=== PATIENT | female | born 1990 | race Caucasian/White ===

== ENCOUNTER 2017-06-05 10:38 | Inpatient (IN) | payer OTHER ==
[2017-06-05 11:02] VITALS: BMI 30.2
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
[2017-06-05] MEDS ORDERED: MAGNESIUM HYDROX 2400MG/30ML ORAL SUSPENSION 30 ML CUP PO PRN (16:45)
[2017-06-05] MEDS ORDERED: MAGNESIUM CITRATE 300 ML BOTTLE PO PRN (16:45)
[2017-06-05] MEDS ORDERED: P-EPHED 60MG/TRIPROLIDI 2.5MG TABLET PO PRN (16:45)
[2017-06-05] MEDS ORDERED: MENTHOL/PHENOL 1 EACH UD MM PRN (16:45)
[2017-06-05] MEDS ORDERED: guaiFENesin/D-METHORPHAN HB 10 ML UNIT-DOSE CUPS PO PRN (16:45)
[2017-06-05] MEDS ORDERED: diazePAM 5 MG TABLET PO ONE (17:15)
[2017-06-05] MEDS ORDERED: METHADONE HCL 10 MG TABLET (FOR DETOX USE ONLY) PO ONE ×2 (17:15→23:00)
[2017-06-05] MEDS: IBUPROFEN 400 MG TABLET (FP) PO PRN (17:35)
[2017-06-05] MEDS: ACETAMINOPHEN 325 MG TABLET (FP) PO PRN (20:53)
[2017-06-05 22:09] LABS: URINE APPEARANCE CLOUDY; URINE BILIRUBIN NEGATIVE (NEGATIVE); URINE BLOOD NEGATIVE (NEGATIVE); URINE COLOR AMBER; URINE GLUCOSE (UA) NEGATIVE (NEGATIVE); URINE KETONE NEGATIVE (NEGATIVE); URINE NITRITE POSITIVE (NEGATIVE); URINE PROTEIN NEGATIVE (NEGATIVE); URINE UROBILINOGEN 4.0 E.U/dl mg/dL (0.2-1.0)
[2017-06-05 22:15] LABS: URINE LEUK ESTERASE 1+ (NEGATIVE)
[2017-06-05 22:17] LABS: EPI CELLS RARE /HPF (FEW); URINE HYALINE CAST 1 /lpf; URINE MUCUS MANY
[2017-06-05] MEDS: THIAMINE HCL 100 MG TABLET (FP) PO SCH (22:45)
[2017-06-05] MEDS: diazePAM 5 MG TABLET PO PRN (22:46)
[2017-06-05] MEDS: diazePAM 5 MG TABLET PO SCH (22:46)
[2017-06-06] MEDS: diazePAM 5 MG TABLET PO SCH ×3 (06:05→22:24)
[2017-06-06] MEDS ORDERED: METHADONE HCL 10 MG TABLET (FOR DETOX USE ONLY) PO SCH (10:00)
[2017-06-06 10:08] LABS: HEMATOCRIT 38.9 % (32.4-45.2); HEMOGLOBIN 12.8 GM/dL (10.7-15.3); MCH 30.5 pg (25.7-33.7); MCHC 32.9 g/dl (32.0-36.0); MEAN CELL VOLUME 92.6 fl (80-96); MEAN PLT VOLUME 10.4 fl (7.5-11.1); PLATELET COUNT 143 K/MM3 (134-434); RDW 12.8 % (11.6-15.6); WHITE BLOOD COUNT 8.2 K/mm3 (4.0-10.0)
[2017-06-06 10:12] LABS: CHLORIDE 106 mmol/L (98-107); SODIUM 141 mmol/L (136-145)
[2017-06-06 10:23] LABS: ALBUMIN 3.2 g/dl (3.4-5.0); ALK PHOS 61 U/L (45-117); ANION GAP 8 (8-16); BILIRUBIN,TOTAL 0.3 mg/dL (0.2-1.0); BLOOD UREA NITROGEN 9 mg/dL (7-18); CO2 27 mmol/L (21-32); CREATININE 0.8 mg/dL (0.55-1.02); GLUCOSE,RANDOM 112 mg/dL (74-106); SGOT/AST 12 U/L (15-37); SGPT/ALT 19 U/L (12-78)
[2017-06-06] MEDS: PRENATAL VITAMINS W/ FOLIC ACID TABLET (FP) PO SCH (10:49)
[2017-06-06] MEDS: NICOTINE 14 MG/24 HOURS TOPICAL PATCH TD SCH (10:50)
[2017-06-06] MEDS: diazePAM 5 MG TABLET PO PRN ×2 (10:53→17:12)
--- NOTE | 2017-06-06 10:56 | EKG ---
Test Reason : Blood Pressure : / mmHG Vent. Rate : 084 BPM Atrial Rate : 084 BPM P-R Int : 124 ms QRS Dur : 074 ms QT Int : 352 ms P-R-T Axes : 022 067 054 degrees QTc Int : 415 ms NORMAL SINUS RHYTHM NORMAL ECG NO PREVIOUS ECGS AVAILABLE Confirmed by MD Cheikh, Matti ([id number]) on 06/06/2017 10:56:09 AM Referred By: Darvin Coyle Confirmed By:Matti Salamanca MD
[2017-06-06] MEDS: MAG HYDROX/AL HYDROX/SIMETH 30 ML UNIT-DOSE CUP PO PRN ×2 (11:11→17:33)
[2017-06-06] MEDS: ACETAMINOPHEN 325 MG TABLET (FP) PO PRN (11:11)
--- NOTE | 2017-06-06 12:04 | PN ---
[facility] CIWA - CIWA Score Nausea/Vomitin-No Nausea/No Vomiting Muscle Tremors: 4-Moderate,w/Arms Extend Anxiety: 4-Mod. Anxious/Guarded Agitation: 4-Moderately Restless Paroxysmal Sweats: 3 Orientation: 0-Oriented Tacttile Disturbances: 0-None Auditory Disturbances: 0-None Visual Disturbances: 0-None Headache: 0-None Present CIWA-Ar Total Score: 15 [facility] COWS - Scale Resting Pulse: 1= [place] 81-100 Sweatin=Flushed/Facial Moisture Restless Observation: 1= Difficult to Sit Still Pupil Size: 0= Normal to Room Light Bone or Joint Aches: 2= Severe Diffuse Aches Runny Nose/ Eye Tearin= Runny Nose/Eyes GI Upset > 30mins: 2= Nausea/Diarrhea Tremor Observation of Outstretched Hands: 2= Slight Tremor Visible Yawning Observation: 2= >3x During Session Anxiety or Irritability: 2=Irritable/Anxious Goose Flesh Skin: 0=Smooth Skin COWS Score: 16 S Progress Note (SOAP) Subjective: agitation sweats diarrhea anxiety chills body aches Objective: 06/06/17 12:03 Vital Signs Temperature 97.9 F 06/06/17 10:41 Pulse Rate 83 06/06/17 10:41 Respiratory Rate 18 06/06/17 10:41 Blood Pressure 117/77 06/06/17 10:41 O2 Sat by Pulse Oximetry (%) Laboratory Tests 06/05/17 06/06/17 06/06/17 21:44 07:00 07:00 WBC 8.2 RBC 4.20 Hgb 12.8 Hct 38.9 MCV 92.6 MCH 30.5 MCHC 32.9 RDW 12.8 Plt Count 143 MPV 10.4 Sodium 141 Potassium 4.0 Chloride 106 Carbon Dioxide 27 Anion Gap 8 BUN 9 Creatinine 0.8 Creat Clearance w eGFR > 60 Random Glucose 112 H Calcium 8.0 L Total Bilirubin 0.3 D AST 12 L D ALT 19 D Alkaline Phosphatase 61 Total Protein 6.0 L Albumin 3.2 L Urine Color [place] Urine Appearance Cloudy Urine pH 6.0 Ur Specific [place] 1.027 Urine Protein Negative Urine Glucose (UA) Negative Urine Ketones Negative Urine Blood Negative Urine Nitrite Positive Urine Bilirubin Negative Urine Urobilinogen 4.0 e.u/dl H Ur Leukocyte Esterase 1+ H D Urine WBC (Auto) 21 Urine RBC (Auto) 5 Ur Epithelial Cells Rare Hyaline Casts 1 Urine Mucus Many repeat u/a aaox3 ambulating no acute distress Assessment: 06/06/17 12:04 withdrawal sx Plan: continue detox increase fluids labs pending
[2017-06-06] MEDS: IBUPROFEN 400 MG TABLET (FP) PO PRN (14:33)
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
[2017-06-06] MEDS: hydrOXYzine PAMOATE 50 MG CAPSULE (FP) PO PRN (21:05)
[2017-06-06] MEDS: THIAMINE HCL 100 MG TABLET (FP) PO SCH (22:24)
[2017-06-06] MEDS: QUEtiapine FUMARATE 50 MG TABLET PO SCH (22:24)
[2017-06-07] MEDS: diazePAM 5 MG TABLET PO SCH ×2 (10:49→22:37)
[2017-06-07] MEDS: METHADONE HCL 5 MG TABLET (FOR DETOX USE ONLY) PO SCH (10:49)
[2017-06-07] MEDS: PRENATAL VITAMINS W/ FOLIC ACID TABLET (FP) PO SCH (10:50)
[2017-06-07] MEDS: LOPERAMIDE HCL 2 MG CAPSULE PO PRN ×2 (10:53→20:29)
[2017-06-07] MEDS: NICOTINE 14 MG/24 HOURS TOPICAL PATCH TD SCH (10:54)
[2017-06-07] MEDS: ACETAMINOPHEN 325 MG TABLET (FP) PO PRN ×2 (11:30→20:30)
[2017-06-07] MEDS: NICOTINE POLACRILEX 2 MG GUM BC PRN (11:44)
--- NOTE | 2017-06-07 12:11 | PN ---
[facility] CIWA - CIWA Score Nausea/Vomitin Muscle Tremors: 3 Anxiety: 3 Agitation: 1-Slight > Activity Paroxysmal Sweats: 3 Orientation: 0-Oriented Tacttile Disturbances: 2-Mild Itch/Numbness/Burn Auditory Disturbances: 0-None Visual Disturbances: 1-Very Mild Sensitivity Headache: 0-None Present CIWA-Ar Total Score: 16 [facility] COWS - Scale Resting Pulse: 0= [place] 80 or Below Sweatin= Chills/Flushing Restless Observation: 1= Difficult to Sit Still Pupil Size: 0= Normal to Room Light Bone or Joint Aches: 1= Mild Discomfort Runny Nose/ Eye Tearin= Runny Nose/Eyes GI Upset > 30mins: 2= Nausea/Diarrhea Tremor Observation of Outstretched Hands: 2= Slight Tremor Visible Yawning Observation: 2= >3x During Session Anxiety or Irritability: 2=Irritable/Anxious Goose Flesh Skin: 3=Piloerection COWS Score: 16 [facility] Progress Note (SOAP) Subjective: alert, interrupted sleep, anxious, body aches, sweat, chills Objective: 06/07/17 12:10 Last Vital Signs Temp Pulse Resp BP Pulse Ox 97.9 F 62 18 95/53 06/07/17 08:05 06/07/17 08:05 06/07/17 08:05 06/07/17 08:05 Laboratory Last Values WBC 8.2 K/mm3 (4.0-10.0) 06/06/17 07:00 RBC 4.20 M/mm3 (3.60-5.2) 06/06/17 07:00 Hgb 12.8 GM/dL (10.7-15.3) 06/06/17 07:00 Hct 38.9 % (32.4-45.2) 06/06/17 07:00 MCV 92.6 fl (80-96) 06/06/17 07:00 MCH 30.5 pg (25.7-33.7) 06/06/17 07:00 MCHC 32.9 g/dl (32.0-36.0) 06/06/17 07:00 RDW 12.8 % (11.6-15.6) 06/06/17 07:00 Plt Count 143 K/MM3 (134-434) 06/06/17 07:00 MPV 10.4 fl (7.5-11.1) 06/06/17 07:00 Sodium 141 mmol/L (136-145) 06/06/17 07:00 Potassium 4.0 mmol/L (3.5-5.1) 06/06/17 07:00 Chloride 106 mmol/L (98-107) 06/06/17 07:00 Carbon Dioxide 27 mmol/L (21-32) 06/06/17 07:00 Anion Gap 8 (8-16) 06/06/17 07:00 BUN 9 mg/dL (7-18) 06/06/17 07:00 Creatinine 0.8 mg/dL (0.55-1.02) 06/06/17 07:00 Creat Clearance w eGFR > 60 (>60) 06/06/17 07:00 Random Glucose 112 mg/dL (74-106) H 06/06/17 07:00 Calcium 8.0 mg/dL (8.5-10.1) L 06/06/17 07:00 Total Bilirubin 0.3 mg/dL (0.2-1.0) D 06/06/17 07:00 AST 12 U/L (15-37) L D 06/06/17 07:00 ALT 19 U/L (12-78) D 06/06/17 07:00 Alkaline Phosphatase 61 U/L (45-117) 06/06/17 07:00 Total Protein 6.0 g/dl (6.4-8.2) L 06/06/17 07:00 Albumin 3.2 g/dl (3.4-5.0) L 06/06/17 07:00 Urine Color [place] 06/05/17 21:44 Urine Appearance Cloudy 06/05/17 21:44 Urine pH 6.0 (5.0-8.0) 06/05/17 21:44 Ur Specific [place] 1.027 (1.001-1.035) 06/05/17 21:44 Urine Protein Negative (NEGATIVE) 06/05/17 21:44 Urine Glucose (UA) Negative (NEGATIVE) 06/05/17 21:44 Urine Ketones Negative (NEGATIVE) 06/05/17 21:44 Urine Blood Negative (NEGATIVE) 06/05/17 21:44 Urine Nitrite Positive (NEGATIVE) 06/05/17 21:44 Urine Bilirubin Negative (NEGATIVE) 06/05/17 21:44 Urine Urobilinogen 4.0 e.u/dl mg/dL (0.2-1.0) H 06/05/17 21:44 Ur Leukocyte Esterase 1+ (NEGATIVE) H D 06/05/17 21:44 Urine WBC (Auto) 21 /hpf (3-5) 06/05/17 21:44 Urine RBC (Auto) 5 /hpf (0-3) 06/05/17 21:44 Ur Epithelial Cells Rare /HPF (FEW) 06/05/17 21:44 Hyaline Casts 1 /lpf 06/05/17 21:44 Urine Mucus Many 06/05/17 21:44 RPR Titer Nonreactive (NONREACTIVE) 06/06/17 07:00 HIV 1&2 Antibody Screen Negative 06/05/17 07:00 HIV P24 Antigen Negative 06/05/17 07:00 Labs noted Assessment: 06/07/17 12:10 withdrawal symptoms Plan: Continue detox
[2017-06-07] MEDS: diazePAM 5 MG TABLET PO PRN ×2 (12:54→17:00)
[2017-06-07] MEDS: hydrOXYzine PAMOATE 50 MG CAPSULE (FP) PO PRN ×2 (15:03→20:29)
[2017-06-07] MEDS: THIAMINE HCL 100 MG TABLET (FP) PO SCH (22:37)
[2017-06-07] MEDS: QUEtiapine FUMARATE 50 MG TABLET PO SCH (22:37)
[2017-06-08] MEDS: diazePAM 5 MG TABLET PO PRN ×2 (08:57→16:40)
[2017-06-08] MEDS: diazePAM 5 MG TABLET PO SCH ×2 (11:01→22:23)
[2017-06-08] MEDS: PRENATAL VITAMINS W/ FOLIC ACID TABLET (FP) PO SCH (11:02)
[2017-06-08] MEDS: METHADONE HCL 5 MG TABLET (FOR DETOX USE ONLY) PO SCH (11:02)
[2017-06-08] MEDS: NICOTINE 14 MG/24 HOURS TOPICAL PATCH TD SCH (11:03)
[2017-06-08] MEDS: NICOTINE POLACRILEX 2 MG GUM BC PRN (11:14)
[2017-06-08] MEDS: IBUPROFEN 400 MG TABLET (FP) PO PRN ×2 (11:16→22:22)
--- NOTE | 2017-06-08 12:48 | PN ---
[facility] Progress Note (SOAP) Subjective: Chills, sweat, diarrhea, body aches, interrupted sleep Objective: 06/08/17 12:46 Vital Signs Temperature 97.9 F 06/08/17 09:30 Pulse Rate 104 H 06/08/17 09:30 Respiratory Rate 20 06/08/17 09:30 Blood Pressure 109/63 06/08/17 09:30 O2 Sat by Pulse Oximetry (%) Laboratory Last Values WBC 8.2 K/mm3 (4.0-10.0) 06/06/17 07:00 RBC 4.20 M/mm3 (3.60-5.2) 06/06/17 07:00 Hgb 12.8 GM/dL (10.7-15.3) 06/06/17 07:00 Hct 38.9 % (32.4-45.2) 06/06/17 07:00 MCV 92.6 fl (80-96) 06/06/17 07:00 MCH 30.5 pg (25.7-33.7) 06/06/17 07:00 MCHC 32.9 g/dl (32.0-36.0) 06/06/17 07:00 RDW 12.8 % (11.6-15.6) 06/06/17 07:00 Plt Count 143 K/MM3 (134-434) 06/06/17 07:00 MPV 10.4 fl (7.5-11.1) 06/06/17 07:00 Sodium 141 mmol/L (136-145) 06/06/17 07:00 Potassium 4.0 mmol/L (3.5-5.1) 06/06/17 07:00 Chloride 106 mmol/L (98-107) 06/06/17 07:00 Carbon Dioxide 27 mmol/L (21-32) 06/06/17 07:00 Anion Gap 8 (8-16) 06/06/17 07:00 BUN 9 mg/dL (7-18) 06/06/17 07:00 Creatinine 0.8 mg/dL (0.55-1.02) 06/06/17 07:00 Creat Clearance w eGFR > 60 (>60) 06/06/17 07:00 Random Glucose 112 mg/dL (74-106) H 06/06/17 07:00 Calcium 8.0 mg/dL (8.5-10.1) L 06/06/17 07:00 Total Bilirubin 0.3 mg/dL (0.2-1.0) D 06/06/17 07:00 AST 12 U/L (15-37) L D 06/06/17 07:00 ALT 19 U/L (12-78) D 06/06/17 07:00 Alkaline Phosphatase 61 U/L (45-117) 06/06/17 07:00 Total Protein 6.0 g/dl (6.4-8.2) L 06/06/17 07:00 Albumin 3.2 g/dl (3.4-5.0) L 06/06/17 07:00 Urine Color [place] 06/05/17 21:44 Urine Appearance Cloudy 06/05/17 21:44 Urine pH 6.0 (5.0-8.0) 06/05/17 21:[address] 1.027 (1.001-1.035) 06/05/17 21:44 Urine Protein Negative (NEGATIVE) 06/05/17 21:44 Urine Glucose (UA) Negative (NEGATIVE) 06/05/17 21:44 Urine Ketones Negative (NEGATIVE) 06/05/17 21:44 Urine Blood Negative (NEGATIVE) 06/05/17 21:44 Urine Nitrite Positive (NEGATIVE) 06/05/17 21:44 Urine Bilirubin Negative (NEGATIVE) 06/05/17 21:44 Urine Urobilinogen 4.0 e.u/dl mg/dL (0.2-1.0) H 06/05/17 21:44 Ur Leukocyte Esterase 1+ (NEGATIVE) H D 06/05/17 21:44 Urine WBC (Auto) 21 /hpf (3-5) 06/05/17 21:44 Urine RBC (Auto) 5 /hpf (0-3) 06/05/17 21:44 Ur Epithelial Cells Rare /HPF (FEW) 06/05/17 21:44 Hyaline Casts 1 /lpf 06/05/17 21:44 Urine Mucus Many 06/05/17 21:44 RPR Titer Nonreactive (NONREACTIVE) 06/06/17 07:00 HIV 1&2 Antibody Screen Negative 06/05/17 07:00 HIV P24 Antigen Negative 06/05/17 07:00 Labs noted Assessment: 06/08/17 12:47 AOx3 Ambulating No signs and symptoms of distress withdrawal Plan: Continue detox increase fluids
[2017-06-08] MEDS: hydrOXYzine PAMOATE 50 MG CAPSULE (FP) PO PRN ×2 (15:14→23:23)
--- NOTE | 2017-06-08 17:42 | PN ---
Psychiatric Progress Note Vital Signs: Vital Signs Period Temp Pulse Resp BP Sys/Euceda Pulse Ox Last 24 Hr 97.3 F-98.8 F 74-117 16-20 95-111/58-76 Date of Session: 06/08/17 Chief Complaint:: "I'm still having difficulty sleeping." HPI: Pt. admitted to N alcohol, heroin, benzodiazepine dependence. ROS: Unremarkable. Current Medications: Active Medications Generic Name Dose Route Start Last Admin Trade Name Freq PRN Reason Stop Dose Admin Acetaminophen 650 mg 06/05/17 16:45 06/07/17 20:30 Tylenol - PO 650 mg Q4H PRN Administration FEVER Al Hydroxide/Mg Hydroxide 30 ml 06/05/17 16:45 06/06/17 17:33 Mylanta Oral Suspension - PO 30 ml Q6H PRN Administration DYSPEPSIA Diazepam 5 mg 06/07/17 10:00 06/08/17 11:01 Valium - PO 06/08/17 22:01 5 mg BID KENDRA Administration Diazepam 5 mg 06/09/17 10:00 Valium - PO 06/09/17 10:01 DAILY KENDRA Eucalyptus/Menthol/Phenol/Sorbitol 1 each 06/05/17 16:45 Cepastat Lozenge - MM Q4H PRN SORE THROAT Guaifenesin 10 ml 06/05/17 16:45 Robitussin Dm - PO Q6H PRN COUGH Hydroxyzine Pamoate 50 mg 06/06/17 16:11 06/08/17 15:14 Vistaril - PO 50 mg Q6H PRN Administration ANXIETY Ibuprofen 400 mg 06/05/17 16:45 06/08/17 11:16 Motrin - PO 400 mg Q6H PRN Administration PAIN LEVEL 4-6 Loperamide HCl 4 mg 06/05/17 16:45 06/07/17 20:29 Imodium - PO 4 mg Q6H PRN Administration DIARRHEA Magnesium Citrate 300 ml 06/05/17 16:45 Citroma - PO Q48H PRN CONSTIPATION Magnesium Hydroxide 30 ml 06/05/17 16:45 Milk Of Magnesia - PO DAILY PRN CONSTIPATION Methadone HCl 10 mg 06/09/17 10:00 Dolophine - PO 06/09/17 10:01 DAILY KENDRA Methadone HCl 5 mg 06/10/17 06:00 Dolophine - PO 06/10/17 06:01 DAILY@0600 KENDRA Nicotine 14 mg 06/06/17 10:00 06/08/17 11:03 Nicoderm Patch - TD 14 mg DAILY KENDRA Administration Nicotine Polacrilex 2 mg 06/05/17 16:45 06/08/17 11:14 Nicorette Gum - BC 2 mg Q2H PRN Administration NICOTINE REPLACEMENT RX Multivit/Folic Acid/Iron 1 tab 06/06/17 10:00 06/08/17 11:02 Vitamins (Sjr) - PO 1 tab DAILY KENDRA Administration Pseudoephedrine/Triprolidine 1 combo 06/05/17 16:45 Actifed - PO TID PRN NASAL CONGESTION Quetiapine Fumarate 50 mg 06/06/17 22:00 06/07/17 22:37 Seroquel - PO 50 mg HS KENDRA Administration Thiamine HCl 100 mg 06/05/17 22:00 06/07/17 22:37 Vitamin B1 - PO 100 mg HS KENDRA Administration Medication(s) Change(s): Yes. Seroquel to be increased to 100mg Current Side Effect: No Lab tests ordered: No Lab tests reviewed: Yes Provider note:: Lan Engineer approached patient concerning psychatric reconsultation. Pt. c/o diffculty sleeping. Requesting the seroquel 50mg to be increased to 100mg. Psychoeducation and sleep hygiene provided. Seroquel to be increased to 100mg. As per pharmacy claims patient has been given a prescription of seroquel 100mg in the past. Verbal consent given. Will continue to monitor. Total face to face time:: 15 Mental Status Exam - Mental Status Exam Alert and Oriented to: Time, Place, Person Cognitive Function: Good Patient Appearance: Well Groomed Mood: Anxious Affect: Normal Range Patient Behavior: Cooperative Speech Pattern: Appropriate Voice Loudness: Normal Thought Process: Goal Oriented Thought Disorder: Not Present Hallucinations: Denies Suicidal Ideation: Denies Homicidal Ideation: Denies Insight/Judgement: Poor Sleep: Poorly Appetite: Fair Muscle strength/Tone: Normal Gait/Station: Normal Psychiatric Treatment Plan - Problem List (1) Alcohol dependence with uncomplicated withdrawal Current Visit: Yes (2) Nicotine dependence Current Visit: Yes Qualifiers: Nicotine product type: cigarettes Substance use status: uncomplicated Qualified Code(s): F17.210 - Nicotine dependence, cigarettes, uncomplicated (3) Uncomplicated sedative, hypnotic, or anxiolytic withdrawal Current Visit: Yes (4) Insomnia Current Visit: Yes (5) MDD (major depressive disorder) Current Visit: No Comment: Self reports. (6) Borderline personality disorder Current Visit: No Comment: Self reports. (7) Heroin dependence Current Visit: Yes
[2017-06-08] MEDS ORDERED: QUEtiapine FUMARATE 50 MG TABLET PO SCH (17:43)
[2017-06-08] MEDS: ACETAMINOPHEN 325 MG TABLET (FP) PO PRN (18:27)
[2017-06-08] MEDS: THIAMINE HCL 100 MG TABLET (FP) PO SCH (22:23)
[2017-06-08] MEDS: QUEtiapine FUMARATE 100 MG TABLET (FP) PO SCH (22:23)
[2017-06-09] MEDS ORDERED: METHADONE HCL 10 MG TABLET (FOR DETOX USE ONLY) PO SCH (10:00)
[2017-06-09] MEDS ORDERED: diazePAM 5 MG TABLET PO SCH (10:00)
[2017-06-09] MEDS: PRENATAL VITAMINS W/ FOLIC ACID TABLET (FP) PO SCH (10:53)
[2017-06-09] MEDS: NICOTINE 14 MG/24 HOURS TOPICAL PATCH TD SCH (10:54)
[2017-06-09] MEDS: hydrOXYzine PAMOATE 50 MG CAPSULE (FP) PO PRN ×3 (10:55→22:32)
[2017-06-09] MEDS: NICOTINE POLACRILEX 2 MG GUM BC PRN ×3 (10:55→22:32)
--- NOTE | 2017-06-09 12:55 | PN ---
[facility] Progress Note (SOAP) Subjective: tired interrupted sleep Objective: 06/09/17 12:53 Vital Signs Temperature 98 F 06/09/17 10:00 Pulse Rate 100 H 06/09/17 10:00 Respiratory Rate 16 06/09/17 10:00 Blood Pressure 102/67 06/09/17 10:00 O2 Sat by Pulse Oximetry (%) aaox3 ambulating no acute distress Assessment: 06/09/17 12:53 withdrawal sx Plan: continue detox d/c in am
[2017-06-09 13:44] LABS: URINE APPEARANCE CLOUDY; URINE BILIRUBIN NEGATIVE (NEGATIVE); URINE BLOOD NEGATIVE (NEGATIVE); URINE COLOR LTYELLOW; URINE GLUCOSE (UA) NEGATIVE (NEGATIVE); URINE KETONE NEGATIVE (NEGATIVE); URINE LEUK ESTERASE NEGATIVE (NEGATIVE); URINE NITRITE NEGATIVE (NEGATIVE); URINE PROTEIN NEGATIVE (NEGATIVE); URINE UROBILINOGEN NEGATIVE mg/dL (0.2-1.0)
[2017-06-09] MEDS: IBUPROFEN 400 MG TABLET (FP) PO PRN ×2 (15:27→22:32)
[2017-06-09] MEDS: ACETAMINOPHEN 325 MG TABLET (FP) PO PRN (17:19)
[2017-06-09] MEDS: THIAMINE HCL 100 MG TABLET (FP) PO SCH (22:31)
[2017-06-09] MEDS: QUEtiapine FUMARATE 100 MG TABLET (FP) PO SCH (22:32)
[2017-06-09] MEDS: LOPERAMIDE HCL 2 MG CAPSULE PO PRN (22:34)
[2017-06-10] MEDS ORDERED: METHADONE HCL 5 MG TABLET (FOR DETOX USE ONLY) PO SCH (06:00)
[2017-06-10 06:29] VITALS: BP 95/55; PULSE 69; TEMP 97.1
[2017-06-10] MEDS: PRENATAL VITAMINS W/ FOLIC ACID TABLET (FP) PO SCH (09:52)
[2017-06-10] MEDS: NICOTINE 14 MG/24 HOURS TOPICAL PATCH TD SCH (09:52)
--- NOTE | 2017-06-10 12:03 | DS ---
[facility] Detox Discharge Summary Admission Date: 06/05/17 Discharge Date: 06/10/17 - History Present History: Alcohol Dependence, Opioid Dependence, Sedative Dependence - Physical Exam Results Vital Signs: Vital Signs Temperature 97.1 F L 06/10/17 06:28 Pulse Rate 69 06/10/17 06:28 Respiratory Rate 18 06/10/17 06:28 Blood Pressure 95/55 06/10/17 06:28 O2 Sat by Pulse Oximetry (%) Pertinent Admission Physical Exam Findings: withdrawal symptoms Laboratory Last Values WBC 8.2 K/mm3 (4.0-10.0) 06/06/17 07:00 RBC 4.20 M/mm3 (3.60-5.2) 06/06/17 07:00 Hgb 12.8 GM/dL (10.7-15.3) 06/06/17 07:00 Hct 38.9 % (32.4-45.2) 06/06/17 07:00 MCV 92.6 fl (80-96) 06/06/17 07:00 MCH 30.5 pg (25.7-33.7) 06/06/17 07:00 MCHC 32.9 g/dl (32.0-36.0) 06/06/17 07:00 RDW 12.8 % (11.6-15.6) 06/06/17 07:00 Plt Count 143 K/MM3 (134-434) 06/06/17 07:00 MPV 10.4 fl (7.5-11.1) 06/06/17 07:00 Sodium 141 mmol/L (136-145) 06/06/17 07:00 Potassium 4.0 mmol/L (3.5-5.1) 06/06/17 07:00 Chloride 106 mmol/L (98-107) 06/06/17 07:00 Carbon Dioxide 27 mmol/L (21-32) 06/06/17 07:00 Anion Gap 8 (8-16) 06/06/17 07:00 BUN 9 mg/dL (7-18) 06/06/17 07:00 Creatinine 0.8 mg/dL (0.55-1.02) 06/06/17 07:00 Creat Clearance w eGFR > 60 (>60) 06/06/17 07:00 Random Glucose 112 mg/dL (74-106) H 06/06/17 07:00 Calcium 8.0 mg/dL (8.5-10.1) L 06/06/17 07:00 Total Bilirubin 0.3 mg/dL (0.2-1.0) D 06/06/17 07:00 AST 12 U/L (15-37) L D 06/06/17 07:00 ALT 19 U/L (12-78) D 06/06/17 07:00 Alkaline Phosphatase 61 U/L (45-117) 06/06/17 07:00 Total Protein 6.0 g/dl (6.4-8.2) L 06/06/17 07:00 Albumin 3.2 g/dl (3.4-5.0) L 06/06/17 07:00 Urine Color Ltyellow 06/09/17 11:15 Urine Appearance Cloudy 06/09/17 11:15 Urine pH 6.0 (5.0-8.0) 06/09/17 11:15 Ur Specific [place] 1.013 (1.001-1.035) 06/09/17 11:15 Urine Protein Negative (NEGATIVE) 06/09/17 11:15 Urine Glucose (UA) Negative (NEGATIVE) 06/09/17 11:15 Urine Ketones Negative (NEGATIVE) 06/09/17 11:15 Urine Blood Negative (NEGATIVE) 06/09/17 11:15 Urine Nitrite Negative (NEGATIVE) 06/09/17 11:15 Urine Bilirubin Negative (NEGATIVE) 06/09/17 11:15 Urine Urobilinogen Negative mg/dL (0.2-1.0) 06/09/17 11:15 Ur Leukocyte Esterase Negative (NEGATIVE) 06/09/17 11:15 Urine WBC (Auto) 21 /hpf (3-5) 06/05/17 21:44 Urine RBC (Auto) 5 /hpf (0-3) 06/05/17 21:44 Ur Epithelial Cells Rare /HPF (FEW) 06/05/17 21:44 Hyaline Casts 1 /lpf 06/05/17 21:44 Urine Mucus Many 06/05/17 21:44 RPR Titer Nonreactive (NONREACTIVE) 06/06/17 07:00 HIV 1&2 Antibody Screen Negative 06/05/17 07:00 HIV P24 Antigen Negative 06/05/17 07:00 - Treatment Hospital Course: Detox Protocol Followed, Detoxed Safely, Responded well, Discharged Condition Good, Rehab Referral Accepted Patient has Accepted a Rehab Referral to: [facility] - Medication Discharge Medications: Ambulatory Orders Trazodone HCl [Oleptro ER] 150 mg PO HS 05/01/16 - Diagnosis (1) Alcohol dependence with uncomplicated withdrawal Status: Acute (2) Heroin dependence Status: Acute (3) Nicotine dependence Status: Chronic Qualifiers: Nicotine product type: cigarettes Substance use status: uncomplicated Qualified Code(s): F17.210 - Nicotine dependence, cigarettes, uncomplicated (4) Uncomplicated sedative, hypnotic, or anxiolytic withdrawal Status: Acute (5) Drug withdrawal seizure Status: Chronic Qualifiers: Complication of substance-induced condition: uncomplicated Qualified Code(s ): F19.230 - Other psychoactive substance dependence with withdrawal, uncomplicated - AMA Did Patient Leave Against Medical Advice: No
== END 2017-06-10 09:11 | disposition home or self-care (01) | DRG 773 ==
LOC: YASAS 10:38 → Y6N 14:13
PROVIDERS: ADMIT Internal Medicine; ATTEND Internal Medicine
PROC: HZ2ZZZZ Detoxification Services for Substance Abuse Treatment (ICD-10-PCS; principal; 2017-06-05)
DX: F11.23 Opioid dependence with withdrawal (principal); F13.230 Sedative, hypnotic or anxiolytic dependence with withdrawal, uncomplicated; F10.230 Alcohol dependence with withdrawal, uncomplicated; F17.210 Nicotine dependence, cigarettes, uncomplicated; F41.8 Other specified anxiety disorders; F19.24 Other psychoactive substance dependence with psychoactive substance-induced mood disorder; F33.9 Major depressive disorder, recurrent, unspecified; F60.3 Borderline personality disorder; G47.00 Insomnia, unspecified; R00.0 Tachycardia, unspecified; Z86.69 Personal history of other diseases of the nervous system and sense organs; Z88.0 Allergy status to penicillin; Z87.59 Personal history of other complications of pregnancy, childbirth and the puerperium; Z86.79 Personal history of other diseases of the circulatory system
CPT/HCPCS: 36415; 80053; 81003; 81015; 85027; 86593; 87389; 93005; 93010